=== PATIENT | male | born 1985 | race Caucasian/White ===

== ENCOUNTER 2017-08-14 21:26 | Emergency (ER) | payer OTHER, SELFPAY ==
[~2017-08-14] VITALS: Ht 175.3 cm; Wt 75.0 kg
[2017-08-14 21:28] VITALS: BP 140/89
[2017-08-14] MEDS ORDERED: ZIPRASIDONE 20 MG INJ IM ONE ×2 (22:30→22:34)
[2017-08-14] MEDS ORDERED: hydrOXyzine 50MG TABLET ONE (23:00)
== END 2017-08-14 23:20 | disposition home or self-care (01) ==
LOC: ED 23:14
DX: F41.1 Generalized anxiety disorder (principal); F12.10 Cannabis abuse, uncomplicated; F15.10 Other stimulant abuse, uncomplicated; Z72.9 Problem related to lifestyle, unspecified; Z88.8 Allergy status to other drugs, medicaments and biological substances
CPT/HCPCS: 99284; Q0177